=== PATIENT | female | born 1990 | race Caucasian/White ===

== ENCOUNTER 2016-12-16 02:33 | Emergency (ER) | payer BC, OTHER ==
[2016-12-16] MEDS ORDERED: Ondansetron INJ* 2 MG/ML VIAL IV ONE ×2 (02:48→03:37)
[2016-12-16] MEDS ORDERED: NS 0.9% 1000 ML* 1,000 ML IV ONE (02:48)
[2016-12-16] MEDS ORDERED: Ondansetron INJ* 2 MG/ML VIAL ONE (03:35)
--- NOTE | 2016-12-16 03:36 | ED ---
Darwin Rudolph Anna, scribed for Nikhil Nolan MD on 12/16/16 at 0304 . GI/ HPI - HPI Summary HPI Summary: Patient is a 26 y/o female coming to [facility] presenting with a sudden onset of emesis that began 7 hours ago. She reports 12 episodes of emesis in that time. She is also experiencing diarrhea, nausea, and abdominal cramping. The abdominal cramping has been worsening in the last 1.5 hours. The patient took Advil PM [employer] to try to sleep, but it did not alleviate the symptoms. She was treated with Zofran and given IV fluids. - History of Current Complaint Stated Complaint: ABD PAIN/VOMITING Hx Obtained From: Patient Onset/Duration: Started Hours Ago, Still Present Timing: Lasting Hours Pain Intensity: 8 Pain Characteristics: Cramping Associated Signs and Symptoms: Positive: Nausea, Vomiting, Diarrhea - Allergy/Home Medications Allergies/Adverse Reactions: Allergies Allergy/AdvReac Type Severity Reaction Status Date / Time Amoxicillin Allergy Rash Verified 07/14/14 17:41 PMH/Surg Hx/FS Hx/Imm Hx Previously Healthy: Yes Endocrine/Hematology History: Denies: Hx Diabetes, Hx Thyroid Disease Cardiovascular History: Denies: Hx Hypertension Respiratory History: Denies: Hx Asthma, Hx Chronic Obstructive Pulmonary Disease (COPD) GI History: Denies: Hx Ulcer Infectious Disease History: No Infectious Disease History: Denies: Hx Hepatitis, Hx Human Immunodeficiency Virus (HIV), Traveled Outside the [place] in Last 30 Days - Family History Known Family History: Positive: Diabetes - Hx in grandmother Negative: Cardiac Disease - Social History Occupation: Employed Full-time Lives: With Family Alcohol Use: Occasionally Substance Use Type: Reports: None, Marijuana Substance Use Comment - Amount & Last Used: yesterday Smoking Status (MU): Light Every Day Tobacco Smoker Type: Cigarettes Amount Used/How Often: 5+ cigarettes a day Length of Time of Smoking/Using Tobacco: 5 years Have You Smoked in the Last Year: Yes Review of Systems Negative: Fever Positive: Abdominal Pain, Vomiting, Diarrhea, Nausea All Other Systems Reviewed And Are Negative: Yes Physical Exam Triage Information Reviewed: Yes Vital Signs On Initial Exam: Initial Vitals Temp Pulse Resp BP Pulse Ox 98.4 F 105 20 112/90 100 12/16/16 02:38 12/16/16 02:38 12/16/16 02:38 12/16/16 02:38 12/16/16 02:38 Vital Signs Reviewed: Yes Appearance: Positive: Ill-Appearing, Pain Distress - mildly uncomfortable Skin: Positive: Warm Eyes: Positive: EOMI, ADIA ENT: Positive: Hearing grossly normal Neck: Positive: Supple Respiratory/Lung Sounds: Positive: Clear to Auscultation, Breath Sounds Present Cardiovascular: Positive: RRR Abdomen Description: Positive: Soft, Other: - mild diffuse abd tenderness. Negative: Guarding Bowel Sounds: Positive: Present Musculoskeletal: Positive: Strength/ROM Intact Neurological: Positive: Sensory/Motor Intact, Alert, Oriented to Person Place, Time Psychiatric: Positive: Affect/Mood Appropriate Diagnostics - Vital Signs Vital Signs Temp Pulse Resp BP Pulse Ox 12/16/16 02:38 98.4 F 105 20 112/90 100 - Laboratory Result Diagrams: 12/16/16 03:25 12/16/16 03:25 Lab Statement: Any lab studies that have been ordered have been reviewed, and results considered in the medical decision making process. Re-Evaluation - Re-Evaluation First Eval Re-Evaluation Time: 03:31 Change: Unchanged Comment: Patient is still experiencing abdominal cramping and nausea. She is dry heaving. She will receive a second dose of Zofran. Second Eval Re-Evaluation Time: 06:14 Change: Improved GIGU Course/Dx - Course Assessment/Plan: Patient is a 26 y/o female [facility] with a sudden onset of emesis that began 7 hours ago. She reports 12 episodes of emesis in that time. She is also experiencing diarrhea, nausea, and abdominal cramping. The abdominal cramping has been worsening in the last 1.5 hours. The patient took Advil PM to try to sleep, but it did not alleviate the symptoms. Labs reveal a glucose level of 120. Patient was treated with Zofran, Reglan, Ativan, Benadryl, and IV fluids in the ED. Patient will be discharged with recommendation of bland diet. Patient is agreeable with this plan. - Diagnoses Provider Diagnoses: Gastroenteritis Discharge - Discharge Plan Condition: Improved Disposition: HOME Patient Education Materials: Diet for Ulcers and Gastritis (ED), Acute Nausea and Vomiting (ED) Referrals: [facility] PHYSICIAN REFERRAL [Outside] Additional Instructions: Maintain bland diet. Follow up with primary care physician in 2-3 days. Return to ED for new or worsening symptoms. The documentation as recorded by the Darwin beavers Anna accurately reflects the service I personally performed and the decisions made by , Nikhil Nolan MD.
[2016-12-16 03:41] LABS: Hematocrit 41 % (35-47); Hemoglobin 13.6 g/dl (12.0-16.0); Mean Corpuscular HGB Conc 34 g/dl (31-36); Mean Corpuscular Hemoglobin 30 pg (27-31); Mean Corpuscular Volume 89 fL (80-97); Mean Platelet Volume 8 um3 (7.4-10.4); Red Blood Count 4.56 10^6/ul (4.0-5.4); Red Cell Distribution Width 13 % (10.5-15); White Blood Count 11.1 10^3/ul (3.5-10.8)
[2016-12-16 03:52] LABS: Albumin 4.9 g/dL (3.2-5.2); BUN/Creatinine Ratio 21.5 (8-20); C Reactive Protein 3.3 mg/L (< 5.00); Calcium 10.1 mg/dL (8.6-10.3); EGFR African American 113.1 (>60); Globulin 2.8 g/dL (2-4); Potassium 3.8 mmol/L (3.5-5.0); Total Protein 7.7 g/dL (6.4-8.9)
[2016-12-16 03:55] LABS: Budding Yeast Present (Absent); Urine Bacteria Absent (Absent); Urine Bilirubin Negative (Negative); Urine Glucose Negative (Negative); Urine Nitrite Negative (Negative)
[2016-12-16] MEDS ORDERED: Metoclopramide IV* 5 MG/ML 2 ML VIAL IV ONE (04:11)
[2016-12-16] MEDS ORDERED: Metoclopramide IV* 5 MG/ML 2 ML VIAL ONE ×2 (04:11→16:00)
[2016-12-16] MEDS ORDERED: LORazepam INJ* 2 MG/ML 1 ML VIAL IV PUSH ONE (04:25)
[2016-12-16] MEDS ORDERED: diPHENhydraMINE IV* 50 MG/ML 1 ml VIAL (BENADRYL) IV ONE (04:25)
[2016-12-16] MEDS ORDERED: LORazepam INJ* 2 MG/ML 1 ML VIAL ONE (04:26)
[2016-12-16] MEDS ORDERED: diPHENhydraMINE IV* 50 MG/ML 1 ml VIAL (BENADRYL) ONE (04:26)
[2016-12-16 06:19] VITALS: BP 113/80
== END 2016-12-16 06:17 | disposition home or self-care (01) ==
LOC: ED 02:33
DX: K52.9 Noninfective gastroenteritis and colitis, unspecified (principal); F17.210 Nicotine dependence, cigarettes, uncomplicated
CPT/HCPCS: 36415; 80053; 81003; 81015; 85025; 86140; 96360; 96374; 96375; 96376; 99285; J1200; J2060; J2405; J2765

== ENCOUNTER 2019-02-17 14:51 | Emergency (ER) | payer MEDICAID ==
[2019-02-17 16:50] VITALS: BP 135/87
--- NOTE | 2019-02-17 17:07 | UC ---
Skin Complaint HPI - HPI Summary HPI Summary: 28-year-old woman comes in with a chief complaint of a skin wound to her right leg just below her knee. She knows about a week ago it looked like a caballero which she popped. Since that time occasionally it's bled and is continuing to feel sore. Last Saturday she's noticed some redness spreading of redness around the area and is continuing to hurt. She has had some fatigue over the last couple of days. She did clean it with hydrogen peroxide. - History of Current Complaint Chief Complaint: UCSkin Time Seen by Provider: 02/17/19 16:39 Stated Complaint: KNEE PAIN Hx Last Menstrual Period: 02/06/19 Pain Intensity: 0 - Allergy/Home Medications Allergies/Adverse Reactions: Allergies Allergy/AdvReac Type Severity Reaction Status Date / Time amoxicillin Allergy Rash Verified 02/17/19 16:50 PMH/Surg Hx/FS Hx/Imm Hx Previously Healthy: Yes - Surgical History Surgical History: None - Family History Known Family History: Positive: Diabetes - Hx in grandmother Negative: Cardiac Disease - Social History Alcohol Use: Occasionally Substance Use Type: Marijuana Substance Use Comment - Amount & Last Used: daily Smoking Status (MU): Light Every Day Tobacco Smoker Type: Cigarettes Amount Used/How Often: 5+ cigarettes a day Length of Time of Smoking/Using Tobacco: 5 years Have You Smoked in the Last Year: Yes Review of Systems All Other Systems Reviewed And Are Negative: Yes Constitutional: Positive: Fatigue. Negative: Fever, Chills Skin: Positive: Other - SEE HPI Eyes: Positive: Negative ENT: Positive: Negative Respiratory: Positive: Negative Cardiovascular: Positive: Negative Gastrointestinal: Positive: Negative Motor: Positive: Negative Neurovascular: Positive: Negative Musculoskeletal: Positive: Negative Neurological: Positive: Negative Psychological: Positive: Negative Is Patient Immunocompromised?: No Physical Exam Triage Information Reviewed: Yes Appearance: Well-Appearing, No Pain Distress, Well-Nourished Vital Signs: Initial Vital Signs Temp 98.3 F 02/17/19 16:40 Pulse 110 02/17/19 16:40 Resp 16 02/17/19 16:40 BP 135/87 02/17/19 16:40 Pulse Ox 95 02/17/19 16:40 Vital Signs Reviewed: Yes Eye Exam: Normal Eyes: Positive: Conjunctiva Clear Neck exam: Normal Neck: Positive: Supple Respiratory: Positive: No respiratory distress Musculoskeletal Exam: Normal Musculoskeletal: Positive: Strength Intact, ROM Intact Neurological Exam: Normal Neurological: Positive: Alert, Muscle Tone Normal Psychological: Positive: Age Appropriate Behavior Skin: Positive: Other - 3CM DIAMETER ERYTHEMATOUS BLANCHING AREA SURROUNDING A 3MM SCAB. NO FLUCTUANT AREA TO I AND D. NO STREAKING. Course/Dx - Diagnoses Provider Diagnosis: Cellulitis of right leg Discharge - Sign-Out/Discharge Documenting (check all that apply): Patient Departure All imaging exams completed and their final reports reviewed: No Studies - Discharge Plan Condition: Stable Disposition: HOME Prescriptions: DOXYcycline CAP(*) [DOXYcycline 100MG CAP(*)] 100 mg PO BID #20 cap Mupirocin 1 applic TOPICAL BID #22 gm Patient Education Materials: Cellulitis (ED) Referrals: Danielle Christensen DO [Primary Care Provider] - Additional Instructions: FOLLOW UP WITH YOUR DOCTOR IF NOT COMPLETELY IMPROVED. GO TO THE EMERGENCY DEPARTMENT FOR ANY WORSENING OF YOUR CONDITION; FEVER, YOU FEEL ILL, SPREAD OF INFECTION OR ANY QUESTIONS OR CONCERNS. - Billing Disposition and Condition Condition: STABLE Disposition: Home
== END 2019-02-17 17:16 | disposition home or self-care (01) ==
LOC: UCEAST 14:51
DX: L03.115 Cellulitis of right lower limb (principal); Z88.0 Allergy status to penicillin; F17.210 Nicotine dependence, cigarettes, uncomplicated
CPT/HCPCS: 99212; G0463

== ENCOUNTER 2019-10-30 10:55 | Emergency (ER) | payer MEDICAID, OTHER ==
[2019-10-30 11:14] VITALS: BP 115/85
--- NOTE | 2019-10-30 11:18 | UC ---
FLU HPI - HPI Summary HPI Summary: 29 yo female presents with sore throat. She tells me that yesterday she had a mild sore throat. Today developed a fever of around 100.4F, chills, body aches, and worse sore throat. Hurts to swallow and eat. She feels nauseous, but has not vomited. She took ibuprofen just prior to arrival today. Denies sinus symptoms, rash, abdominal pain, dysuria. She does smoke daily. - History of Current Complaint Chief Complaint: UCGeneralIllness Stated Complaint: EAR ACHE, AND SORE THROAT Time Seen by Provider: 10/30/19 11:18 Hx Obtained From: Patient Hx Last Menstrual Period: 10/14/19 Onset/Duration: Sudden Onset Severity Currently: Moderate Severity Initially: Mild Pain Intensity: 6 Pain Scale Used: 0-10 Numeric - Allergy/Home Medications Allergies/Adverse Reactions: Allergies Allergy/AdvReac Type Severity Reaction Status Date / Time amoxicillin Allergy Rash Verified 02/17/19 16:50 Home Medications: Home Medications Ibuprofen TAB* [Advil TAB*] 3 tab PO TID PRN 10/30/19 [History Confirmed ] PMH/Surg Hx/FS Hx/Imm Hx - Additional Past Medical History Additional PMH: None - Surgical History Surgical History: None - Family History Known Family History: Positive: Diabetes - Hx in grandmother Negative: Cardiac Disease - Social History Lives: With Family Alcohol Use: Occasionally Substance Use Type: Marijuana Substance Use Comment - Amount & Last Used: daily Smoking Status (MU): Light Every Day Tobacco Smoker Type: Cigarettes Amount Used/How Often: 5+ cigarettes a day Length of Time of Smoking/Using Tobacco: 5 years Have You Smoked in the Last Year: Yes Review of Systems All Other Systems Reviewed And Are Negative: No Constitutional: Positive: Fever, Fatigue, Other - Body aches Skin: Positive: Negative Eyes: Positive: Negative ENT: Positive: Sore Throat Respiratory: Positive: Negative Cardiovascular: Positive: Negative Gastrointestinal: Positive: Negative Neurological: Positive: Negative Psychological: Positive: Negative Physical Exam - Summary Physical Exam Summary: GENERAL: NAD. WDWN. No pain distress. SKIN: No rashes, sores, lesions, or open wounds. HEENT: Head: AT/NC Eyes: Conjunctiva clear without inflammation or discharge. Ears: Hearing grossly normal. TMs intact, no bulging, erythema, or edema. Nose: Nasal mucosa pink and moist. NTTP maxillary and frontal sinus. Throat: Posterior oropharynx moderate erythema and 2+ tonsillar enlargement. Mild white exudates. Uvula midline. No hoarse voice or muffled voice. NECK: Supple. B/L tonsillar LAD mildly TTP. FROM. No pain with flexion or extension. CHEST: CTAB. No r/r/w. No accessory muscle use. Breathing comfortably and in no distress. CV: RRR.. Pulses intact. Cap refill <2seconds NEURO: Alert. PSYCH: Age appropriate behavior. Triage Information Reviewed: Yes Vital Signs: Initial Vital Signs Temp 100.5 F 10/30/19 11:08 Pulse 108 10/30/19 11:08 Resp 18 10/30/19 11:08 BP 115/85 10/30/19 11:08 Pulse Ox 100 10/30/19 11:08 Laboratory Tests 10/30/19 10/30/19 11:24 11:37 Influenza A (Rapid) Negative Influenza B (Rapid) Negative Group A Strep Rapid Negative Vital Signs Reviewed: Yes Flu Course/Dx - Course Course Of Treatment: POC strep and flu negative. Given fever, quick onset, and exam today - will treat for step/tonsillitis with keflex. Advised to continue tylenol/ibuprofen as directed and fluids. - Differential Dx/Diagnosis Provider Diagnosis: Tonsillitis Discharge ED - Sign-Out/Discharge Documenting (check all that apply): Patient Departure All imaging exams completed and their final reports reviewed: No Studies - Discharge Plan Condition: Stable Disposition: HOME Prescriptions: Cephalexin CAP* [Keflex CAP*] 500 mg PO BID #20 cap Patient Education Materials: Tonsillitis (ED) Referrals: Danielle Christensen DO [Primary Care Provider] - Additional Instructions: If you develop a fever, shortness of breath, chest pain, new or worsening symptoms - please call your PCP or go to the ED immediately. Continue taking tylenol/ibuprofen for your fever and discomfort - Billing Disposition and Condition Condition: STABLE Disposition: Home
[2019-10-30 11:35] LABS: Influenza A Molecular NEGATIVE (Negative); Influenza B Molecular NEGATIVE (Negative)
[2019-10-30] MEDS ORDERED: Lidocaine 2% VISCOUS* 15 ML UDC PO ONE (11:35)
== END 2019-10-30 11:56 | disposition home or self-care (01) ==
LOC: UCEAST 10:55
DX: J03.90 Acute tonsillitis, unspecified (principal); F17.210 Nicotine dependence, cigarettes, uncomplicated; R53.83 Other fatigue; Z88.0 Allergy status to penicillin
CPT/HCPCS: 87651; 99212; G0463